=== PATIENT | male | born 1960 | race Caucasian/White ===

== ENCOUNTER 2023-01-26 06:57 | Emergency (ER) | payer OTHER ==
[~2023-01-26] VITALS: Ht 182.9 cm; Wt 91.6 kg
[2023-01-26] MEDS ORDERED: AMOX TR-K CLV1 EAC1 PO (07:35)
[2023-01-26 07:52] VITALS: BP 164/99
== END 2023-01-26 07:52 | disposition home or self-care (01) ==
LOC: ED 06:57
DX: L03.113 Cellulitis of right upper limb (principal); S51.851A Open bite of right forearm, initial encounter; S61.552A Open bite of left wrist, initial encounter; W54.0XXA Bitten by dog, initial encounter
CPT/HCPCS: 99283